=== PATIENT | female | born 1990 | race Caucasian/White ===

== ENCOUNTER 2021-05-27 10:11 | Emergency (ER) | payer BC ==
[~2021-05-27] VITALS: Ht 157.5 cm; Wt 54.4 kg
[2021-05-27] MEDS ORDERED: DIAZEPAM5 MG PO (17:10)
== END 2021-05-27 17:49 | disposition home or self-care (01) ==
LOC: ER 10:11 → CPU-OBS 12:37 → ER 17:49
DX: R07.89 Other chest pain (principal); R06.02 Shortness of breath; Q79.69 Other Ehlers-Danlos syndromes; F41.8 Other specified anxiety disorders; Z03.818 Encounter for observation for suspected exposure to other biological agents ruled out